=== PATIENT | female | born 1945 | race Caucasian/White ===

== ENCOUNTER → 2022-11-27 12:22 | Outpatient (CLI) | payer MEDICARE, BC, SELFPAY ==
--- NOTE | 2022-11-27 12:24 | DI.US.S_ITS ---
PROCEDURE: US PERIPH VENOUS LOW EXTREM LT INDICATIONS: LLE EDEMA TECHNIQUE: Real-time imaging, as well as color and pulse Doppler interrogation, were performed of the lower extremity deep veins from the inguinal ligament to the popliteal fossa, with documentation of the visualized calf veins. COMPARISON: None. FINDINGS: The common femoral, femoral, popliteal, and the visualized calf veins are normally compressible, and free of intraluminal thrombus. Color and pulse Doppler demonstrate normal phasic intraluminal flow. There is normal augmentation response to distal compression maneuver. IMPRESSION: No findings of lower extremity deep venous thrombosis. Dictated by: Josue Hudson M.D. on 11/27/2022 at 15:26 Approved by: Josue Hudson M.D. on 11/27/2022 at 15:26
== END ==
PROVIDERS: PCP Family Medicine; Referring Provider Physician Assistant Medical; Visit Provider Physician Assistant Medical
DX: R22.42 Localized swelling, mass and lump, left lower limb (principal); M79.606 Pain in leg, unspecified; M79.673 Pain in unspecified foot
CPT/HCPCS: 93971

== ENCOUNTER → 2022-12-11 08:13 | Outpatient (CLI) | payer MEDICARE, BC, SELFPAY ==
[2022-12-11 19:30] LABS: Add Manual Diff / Slide Review NO; Basophils Absolute Auto 0 /uL (0-100); Basophils Percent Auto 0.7 % (0-2); Eosinophils Absolute Auto 100 /uL (0-450); Eosinophils Percent Auto 1.3 % (2-4); Hematocrit 40.1 % (36-46); Hemoglobin 13.6 g/dL (12.0-16.0); Lymphocytes Absolute Auto 1200 /uL (1100-4500); Lymphocytes Percent Auto 22.5 % (25-40); Mean Corpuscular Hemoglobin 33.1 PG (26-34); Mean Corpuscular Volume 97.3 fL (80-100); Monocytes Absolute Auto 500 /uL (0-900); Monocytes Percent Auto 9.2 % (3-14); Neutrophils Absolute Auto 3400 /uL (1500-7000); Neutrophils Percent Auto 66.3 % (50-75); Platelet Count 193 X10^3/uL (150-400); Red Blood Cell Count 4.12 X10^6/uL (4.0-5.2); Red Cell Distribution Width 14.3 % (11.6-14.8); White Blood Cell Count 5.1 X10^3/uL (4.5-11.0)
[2022-12-11 19:40] LABS: BUN Creatinine Ratio 28.8 (6-22); Blood Urea Nitrogen 19 mg/dL (7-17); Calcium 9.3 mg/dL (8.4-10.2); Carbon Dioxide 31 mmol/L (22-32); Chloride 103 mmol/L (98-107); Cholesterol 214 mg/dL (140-199); Estimated Glomerular Filt Rate > 60 mL/min (>60); Glucose 95 mg/dL (80-110); HDL Cholesterol 88 mg/dL (40-60); HEMOLYSIS < 15 (0-50); LDL Cholesterol Calculated 110 mg/dL (<100); Potassium 3.9 mmol/L (3.4-5.1); Sodium 138 mmol/L (137-145); Triglycerides 81 mg/dL (35-150); Uric Acid 5.4 mg/dL (2.5-6.2)
== END ==
PROVIDERS: PCP Family Medicine; Visit Provider Family Medicine
DX: Z13.6 Encounter for screening for cardiovascular disorders (principal); R53.83 Other fatigue; Z13.1 Encounter for screening for diabetes mellitus; Z13.220 Encounter for screening for lipoid disorders; Z71.85 Encounter for immunization safety counseling; M79.673 Pain in unspecified foot; M79.606 Pain in leg, unspecified
CPT/HCPCS: 80048; 80061; 84550; 85025

== ENCOUNTER → 2022-12-28 09:16 | Outpatient (CLI) | payer MEDICARE, BC, SELFPAY ==
[2022-12-28 19:46] LABS: Vitamin D 25 Hydroxy (D3) 31.8 ng/mL (30.0-100.0)
[2022-12-28 19:58] LABS: Thyroid Stimulating Hormone 1.34 uIU/mL (0.47-4.68)
[2022-12-28 20:12] LABS: Vitamin B12 371 pg/mL (239-931)
[2023-01-02 13:18] LABS: Albumin 3.6 g/dL (2.9-4.4); Alpha 1 Globulin 0.2 g/dL (0.0-0.4); Alpha 2 Globulin 0.7 g/dL (0.4-1.0); Beta 1 Globulin 1.1 g/dL (0.7-1.3); Gamma Globulin 0.8 g/dL (0.4-1.8); Protein, Total 6.5 g/dL (6.0-8.5)
== END ==
PROVIDERS: PCP Family Medicine; Visit Provider Family Medicine
DX: R53.83 Other fatigue (principal); M81.0 Age-related osteoporosis without current pathological fracture; G62.9 Polyneuropathy, unspecified
CPT/HCPCS: 82306; 82607; 84155; 84165; 84443

== ENCOUNTER → 2023-01-10 13:14 | Outpatient (CLI) | payer MEDICARE, BC, SELFPAY ==
[2023-01-10 19:33] LABS: Aspartate Aminotransferase 28 IU/L (14-36)
== END ==
PROVIDERS: PCP Family Medicine; Visit Provider Family Medicine
DX: B35.1 Tinea unguium (principal)
CPT/HCPCS: 84450

== ENCOUNTER → 2023-03-07 09:19 | Outpatient (CLI) | payer MEDICARE, BC, SELFPAY ==
[2023-03-07 19:53] LABS: Cholesterol 211 mg/dL (140-199); HDL Cholesterol 89 mg/dL (40-60); LDL Cholesterol Calculated 107 mg/dL (<100); Triglycerides 73 mg/dL (35-150)
== END ==
PROVIDERS: PCP Family Medicine; Visit Provider Family Medicine
DX: E78.2 Mixed hyperlipidemia (principal); I65.29 Occlusion and stenosis of unspecified carotid artery
CPT/HCPCS: 80061

== ENCOUNTER → 2023-03-13 12:00 | Outpatient (CLI) | payer MEDICARE, BC, SELFPAY ==
[2023-03-13 20:10] LABS: Aspartate Aminotransferase 35 IU/L (14-36)
== END ==
PROVIDERS: PCP Family Medicine; Visit Provider Family Medicine
DX: Z51.81 Encounter for therapeutic drug level monitoring (principal)
CPT/HCPCS: 84450

== ENCOUNTER → 2023-04-16 14:04 | Outpatient (CLI) | payer MEDICARE, BC, SELFPAY ==
[2023-04-16 20:26] LABS: Add Manual Diff / Slide Review NO; Basophils Absolute Auto 0 /uL (0-100); Basophils Percent Auto 0.6 % (0-2); Eosinophils Absolute Auto 100 /uL (0-450); Hematocrit 42.7 % (36-46); Hemoglobin 14.4 g/dL (12.0-16.0); Lymphocytes Absolute Auto 1400 /uL (1100-4500); Lymphocytes Percent Auto 20.3 % (25-40); Mean Corpuscular HGB Conc 33.7 % (30-36); Mean Corpuscular Hemoglobin 32.4 PG (26-34); Monocytes Absolute Auto 500 /uL (0-900); Monocytes Percent Auto 7.2 % (3-14); Neutrophils Absolute Auto 4900 /uL (1500-7000); Neutrophils Percent Auto 70.9 % (50-75); Platelet Count 237 X10^3/uL (150-400); Red Blood Cell Count 4.45 X10^6/uL (4.0-5.2); Red Cell Distribution Width 13.9 % (11.6-14.8)
[2023-04-16 20:28] LABS: Alanine Aminotransferase 25 IU/L (<35); Albumin 4.1 g/dL (3.5-5.0); Albumin Globulin Ratio 1.4 (1.0-2.8); Alkaline Phosphatase 90 U/L (38-126); Bilirubin Total 0.8 mg/dL (0.2-1.3); Blood Urea Nitrogen 20 mg/dL (7-17); Calcium 9.6 mg/dL (8.4-10.2); Carbon Dioxide 30 mmol/L (22-32); Chloride 102 mmol/L (98-107); Estimated Glomerular Filt Rate > 60 mL/min (>60); Glucose 100 mg/dL (80-110); Sodium 141 mmol/L (137-145); Total Protein 7.1 g/dL (6.3-8.2)
[2023-04-16 20:29] LABS: Aspartate Aminotransferase 50 IU/L (14-36); HEMOLYSIS 61 (0-50); Potassium 4.2 mmol/L (3.4-5.1)
[2023-04-16 20:32] LABS: Hemoglobin A1C% w Est Avg Glu 5.8 % (4.0-6.0)
[2023-04-16 20:38] LABS: Erythrocyte Sedimentation Rate 18 MM/HR (0-20)
[2023-04-18 20:38] LABS: Free Kappa Lt Chains, Serum 21.6 mg/L (3.3-19.4); Free Lambda Lt Chains,Serum 14.4 mg/L (5.7-26.3)
[2023-04-22 15:35] LABS: ANA Screen, IFA Negative (.)
== END ==
PROVIDERS: PCP Family Medicine; Visit Provider Psychiatry & Neurology Neurology
DX: G60.9 Hereditary and idiopathic neuropathy, unspecified (principal)
CPT/HCPCS: 80053; 83036; 83883; 85025; 85651; 86038

== ENCOUNTER → 2023-07-19 12:23 | Outpatient (CLI) | payer MEDICARE, BC, SELFPAY ==
[2023-07-19 21:47] LABS: Add Manual Diff / Slide Review NO; Basophils Absolute Auto 0 /uL (0-100); Basophils Percent Auto 0.6 % (0-2); Eosinophils Absolute Auto 100 /uL (0-450); Eosinophils Percent Auto 1.2 % (2-4); Hematocrit 43.2 % (36-46); Hemoglobin 14.3 g/dL (12.0-16.0); Lymphocytes Absolute Auto 1500 /uL (1100-4500); Lymphocytes Percent Auto 20.1 % (25-40); Mean Corpuscular HGB Conc 33.2 % (30-36); Mean Corpuscular Hemoglobin 31.9 PG (26-34); Mean Corpuscular Volume 96.3 fL (80-100); Monocytes Absolute Auto 400 /uL (0-900); Monocytes Percent Auto 5.5 % (3-14); Neutrophils Absolute Auto 5600 /uL (1500-7000); Neutrophils Percent Auto 72.6 % (50-75); Platelet Count 208 X10^3/uL (150-400); Red Blood Cell Count 4.48 X10^6/uL (4.0-5.2); White Blood Cell Count 7.7 X10^3/uL (4.5-11.0)
[2023-07-19 22:39] LABS: C-Reactive Protein Quant < 0.5 mg/dL (<1.0)
[2023-07-19 23:28] LABS: Erythrocyte Sedimentation Rate 13 MM/HR (0-20)
== END ==
PROVIDERS: PCP Family Medicine; Visit Provider Family Medicine
DX: M79.10 Myalgia, unspecified site (principal); R53.83 Other fatigue; I65.29 Occlusion and stenosis of unspecified carotid artery; G62.9 Polyneuropathy, unspecified
CPT/HCPCS: 85025; 85651; 86038; 86140

== ENCOUNTER → 2023-08-29 10:49 | Outpatient (CLI) | payer MEDICARE, BC, SELFPAY ==
[2023-08-29 19:42] LABS: Alanine Aminotransferase 21 IU/L (<35); Albumin 4.4 g/dL (3.5-5.0); Albumin Globulin Ratio 1.6 (1.0-2.8); Alkaline Phosphatase 73 U/L (38-126); Aspartate Aminotransferase 30 IU/L (14-36); Bilirubin Total 0.7 mg/dL (0.2-1.3); Bilirubin Unconjugated 0.3 mg/dL (0.0-1.1); Globulin 2.8 g/dL (1.7-4.1); HEMOLYSIS < 15 (0-50); Total Protein 7.2 g/dL (6.3-8.2)
[2023-08-29 20:17] LABS: TSH w/ Reflex to FT4 0.73 uIU/mL (0.47-4.68)
[2023-08-29 20:19] LABS: Erythrocyte Sedimentation Rate 14 MM/HR (0-20)
[2023-08-29 20:37] LABS: Vitamin B12 > 1000 pg/mL (239-931)
== END ==
PROVIDERS: Family Provider Family Medicine; PCP Family Medicine; Visit Provider Family Medicine
DX: M79.10 Myalgia, unspecified site (principal); G62.9 Polyneuropathy, unspecified; R53.83 Other fatigue
CPT/HCPCS: 80076; 82607; 84443; 85651

== ENCOUNTER → 2023-10-09 10:34 | Outpatient (CLI) | payer MEDICARE, BC, SELFPAY ==
--- NOTE | 2023-10-09 | DI.RAD.S_ITS ---
PROCEDURE: XR DEXA AXIAL SKELETON INDICATIONS: menopause and Hx hip fracture COMPARISON: None. FINDINGS: Lumbar Spine: Bone mineral density is 0.825 g/cm2, T score -2.0 Right Hip: Bone mineral density 0.733 g/cm2, T score -1.7 Right Femoral Neck: Bone mineral density is g/cm2, T score -2.4 Left Forearm: Bone mineral density 0.405 g/cm2, T score -3.2 Fracture Risk Calculation (when applicable): 10-year fracture risk of a major osteoporotic fracture <25 % and of a hip fracture 7.6%. (T score greater or equal to -1.0 to: NORMAL) (T score from -1.1 to -2.4: OSTEOPENIA) (T score less than or equal to -2.5: OSTEOPOROSIS) IMPRESSION: There is osteopenia of the lumbar spine, right hip and right femoral neck. There is osteoporosis of the left forearm. Follow-up guidelines as follows: Osteoporosis: Consider a repeat DEXA and Vertebral Fracture Assessment (VFA) exam in 2 years or sooner if medically necessary, to reassess this patient's status. Osteopenia: Consider a repeat DEXA in 2-3 years to reassess this patient's status, or if there is a new clinical indication. Normal: Consider a repeat DEXA in 5 years or sooner, or if there is a new clinical indication. All treatment decisions require clinical judgment and consideration of individual patient factors, including patient preferences, comorbidities, previous drug use, risk factors not captured in the FRAX model (e.g., frailty, falls, vitamin D deficiency, increased bone turnover, interval significant decline in bone density ) and possible under- or over-estimation of fracture risk by FRAX. In addition, the NOF Guide recommends that FDA-approved medical therapies be considered in postmenopausal women and men age >= 50 years with a: * Hip or vertebral (clinical or morphometric) fracture * T-score of <=-2.5 at the spine or hip * Ten-year fracture probability by FRAX of >= 3% for hip fracture or >=20% for major osteoporotic fracture. People with diagnosed cases of osteoporosis or at high risk for fracture should have regular bone mineral density tests. For patients eligible for Medicare, routine testing is allowed once every 2 years. The testing frequency can be increased to one year for patients who have rapidly progressing disease, those who are receiving or discontinuing medical therapy to restore bone mass, or have additional risk factors. Dictated by: Aman Henriquez M.D. on 10/10/2023 at 7:22 Approved by: Aman Henriquez M.D. on 10/10/2023 at 7:25
--- NOTE | 2023-10-09 10:37 | DI.MRI.S_ITS ---
PROCEDURE: MR LUMBAR SPINE WO CON INDICATIONS: Neurogenic claudication TECHNIQUE: Noncontrast sagittal T1 spin echo and T2 fast echo, sagittal STIR, and T2 fast spin echo through the lumbar spine. In cases with scoliosis, additional coronal T2 fast spin echo may be performed. COMPARISON: None. FINDINGS: Image quality: Excellent. Alignment and Curvature: There is straightening of lumbar lordosis. There is grade 1 retrolisthesis of L2 on L3, L3 on L4, L4 on L5 and L5 on S1. Bone Marrow: Marrow is of normal overall signal. Scattered lipid rich osseous hemangiomas. No acute vertebral body compression fractures. Spinal Cord: Conus medullaris terminates at the L1-L2 level. Visualized cord demonstrates normal signal and size. Paraspinous Soft Tissues: Hepatic and renal cysts. Intervertebral discs: Multilevel disc desiccation and height loss. T12-L1: No spinal canal stenosis or foraminal stenosis. Bilateral facet arthropathy. L1-L2: Dorsal disc bulge minimally effaces the ventral thecal sac. No foraminal stenosis. Bilateral facet arthropathy and ligamentum flavum hypertrophy. L2-L3: Dorsal disc bulge and ligamentum flavum hypertrophy result in mild narrowing the spinal canal. No foraminal stenosis. There is bilateral facet arthropathy. L3-L4: Dorsal disc bulge and ligamentum flavum hypertrophy result in mild narrowing the spinal canal. Mild bilateral foraminal narrowing. Bilateral facet arthropathy. L4-L5: Dorsal disc bulge mildly narrows the spinal canal. There is an annular tear along the dorsal aspect of the intervertebral disc. Moderate bilateral foraminal stenosis. Bilateral facet arthropathy and ligamentum flavum hypertrophy. L5-S1: Dorsal disc bulge mildly effaces the ventral thecal sac. Mild to moderate foraminal stenosis. Bilateral facet arthropathy. IMPRESSION: 1. There is multilevel degenerative disc disease within the lumbar spine as described above. No spinal canal stenosis. 2. There is straightening of lumbar lordosis. This finding can be seen in patients with muscle spasms. 3. There is grade 1 retrolisthesis of L2 on L3, L3 on L4, L4 on L5 and L5 on S1. Dictated by: Aman Henriquez M.D. on 10/09/2023 at 15:59 Approved by: Aman Henriquez M.D. on 10/09/2023 at 16:14
== END ==
PROVIDERS: Family Provider Family Medicine; PCP Family Medicine; Referring Provider Family Medicine; Visit Provider Family Medicine
DX: M43.17 Spondylolisthesis, lumbosacral region (principal); M43.16 Spondylolisthesis, lumbar region; M51.36 Other intervertebral disc degeneration, lumbar region; M51.37 Other intervertebral disc degeneration, lumbosacral region; M47.816 Spondylosis without myelopathy or radiculopathy, lumbar region; M47.817 Spondylosis without myelopathy or radiculopathy, lumbosacral region; M54.50 Low back pain, unspecified; G62.9 Polyneuropathy, unspecified; I73.9 Peripheral vascular disease, unspecified; M81.0 Age-related osteoporosis without current pathological fracture; Z78.0 Asymptomatic menopausal state; Z87.81 Personal history of (healed) traumatic fracture
CPT/HCPCS: 72148; 77080; 77081

== ENCOUNTER → 2023-12-05 11:34 | Outpatient (CLI) | payer MEDICARE, BC, SELFPAY ==
[2023-12-10 14:09] LABS: Alpha-1-Globulin 0.2 g/dL (0.0-0.4); Alpha-2-Globulin 0.8 g/dL (0.4-1.0); Gamma Globulin 0.8 g/dL (0.4-1.8); Globulin Total 2.9 g/dL (2.2-3.9); Protein, Total 6.9 g/dL (6.0-8.5)
[2023-12-11 17:08] LABS: ANA Screen, IFA Negative (.)
== END ==
PROVIDERS: Family Provider Family Medicine; PCP Family Medicine; Visit Provider Psychiatry & Neurology Neurology
DX: G60.9 Hereditary and idiopathic neuropathy, unspecified (principal)
CPT/HCPCS: 84155; 84165; 86038

== ENCOUNTER → 2023-12-12 10:17 | Outpatient (CLI) | payer MEDICARE, BC, SELFPAY ==
--- NOTE | 2023-12-12 10:18 | DI.US.S_ITS ---
PROCEDURE: US CAROTID DOPPLER BI INDICATIONS: STENOSIS OF CAROTID ARTERY TECHNIQUE: Color and pulse Doppler interrogation was performed of both carotid systems, with image documentation and velocity measurements. COMPARISON: None. FINDINGS: Stenosis calculations are based on SRU (Society of Radiologists in Ultras[employer]) criteria. Right side: Brachial blood pressure: 137/75 mm Hg. Common carotid artery peak systolic velocity: 70 cm/sec. Internal carotid artery peak systolic velocity: 67 cm/sec. Internal carotid artery end diastolic velocity: 28 cm/sec. External carotid artery peak systolic velocity: 50 cm/sec. ICA/CCA peak systolic ratio: 1.0 . Bhakta scale imaging description: Mild plaque Percent internal carotid artery stenosis: Less than 50% . Vertebral artery: Flow direction is antegrade. Left side: Brachial blood pressure: 140/81 mm Hg. Common carotid artery peak systolic velocity: 55 cm/sec. Internal carotid artery peak systolic velocity: 57 cm/sec. Internal carotid artery end diastolic velocity: 21 cm/sec. External carotid artery peak systolic velocity: 50 cm/sec. ICA/CCA peak systolic ratio: 1.0 . Bhakta scale imaging description: Mild plaque Percent internal carotid artery stenosis: Less than 50% . Vertebral artery: Flow direction is antegrade. IMPRESSION: Less than 50% stenosis of the internal carotid arteries bilaterally. Dictated by: Luz Marina Pratt M.D. on 12/12/2023 at 17:21 Approved by: Luz Marina Pratt M.D. on 12/12/2023 at 17:21
== END ==
PROVIDERS: Family Provider Family Medicine; PCP Family Medicine; Referring Provider Internal Medicine Cardiovascular Disease; Visit Provider Internal Medicine Cardiovascular Disease
DX: I65.23 Occlusion and stenosis of bilateral carotid arteries (principal); E78.5 Hyperlipidemia, unspecified; R53.83 Other fatigue
CPT/HCPCS: 93880

== ENCOUNTER → 2024-01-28 10:10 | Outpatient (CLI) | payer MEDICARE, BC, SELFPAY ==
[2024-01-28 18:54] LABS: Cholesterol 249 mg/dL (140-199); HDL Cholesterol 96 mg/dL (40-60); LDL Cholesterol Calculated 136 mg/dL (<100); Triglycerides 83 mg/dL (35-150)
== END ==
PROVIDERS: Family Provider Family Medicine; PCP Family Medicine; Visit Provider Family Medicine
DX: E78.2 Mixed hyperlipidemia (principal)
CPT/HCPCS: 80061

== ENCOUNTER → 2024-04-16 11:21 | Outpatient (CLI) | payer MEDICARE, BC, SELFPAY ==
--- NOTE | 2024-04-16 11:22 | DI.MRI.S_ITS ---
PROCEDURE: MR CERVICAL SPINE WO CON INDICATIONS: upper extremity neuropathy TECHNIQUE: Noncontrast sagittal T1 spin echo and T2 fast spin echo, sagittal STIR, foraminal oblique sagittal T2 fast spin echo, and axial gradient echo or T2 fast spin echo through the cervical spine. COMPARISON: None. FINDINGS: Image quality: Excellent. Alignment and Curvature: Minimal retrolisthesis can be seen at the C4-C5 level. There is minimal anterolisthesis seen at C7-T1. Bone Marrow: Marrow demonstrates normal overall signal. Spinal Cord: Visualized spinal cord has normal size and signal. No cerebellar tonsillar herniation. Paraspinous Soft Tissues: No paravertebral masses. Prevertebral soft tissues are normal in thickness. C2-C3: The disc height is well-preserved. Loss of disc signal is seen at this level. A mild degree of generalized disc osteophyte complex is seen. [id number] left-sided facet hypertrophy is seen. There is mild left-sided and no right-sided neural foraminal narrowing. No central canal narrowing is seen. C3-C4: The disc height is well-preserved. Loss of disc signal is seen at this level. A mild degree of generalized disc osteophyte complex is seen. Moderate facet joint hypertrophy is seen. There is mild right-sided and no left-sided neural foraminal narrowing. Minimal central canal narrowing is seen. C4-C5: Moderate loss of disc height is seen. Loss of disc signal is seen. Mild to moderate disc osteophyte complex is seen, with a central disc osteophyte protrusion. There is mild right-sided and moderate left-sided facet hypertrophy. There is moderate right-sided and at least moderate left-sided neural foraminal narrowing. Mild to moderate central canal narrowing is seen, with mild mass effect upon the ventral spinal cord. C5-C6: Mild loss of disc height is seen. Loss of disc signal is seen. Mild to moderate facet hypertrophy can be seen. Moderate bilateral neural foraminal narrowing can be seen, left worse than right. Mild central canal narrowing is seen. C6-C7: [id number] loss of disc height and disc signal can be seen. Moderate disc osteophyte complex is seen, which is slightly eccentric to the right. There is a central disc osteophyte protrusion. Moderate facet joint hypertrophy is seen. There is moderate to severe right-sided and at least moderate left-sided neural foraminal narrowing. Moderate central canal narrowing is seen. There is associated mass effect upon the ventral spinal cord. C7-T1: Mild loss of disc height is seen. Loss of disc signal is seen. A mild degree of generalized disc osteophyte complex is seen. Mild facet joint hypertrophy is seen. No significant neural foraminal or central canal narrowing can be seen. IMPRESSION: Multiple levels of cervical spine degenerative change can be seen, which are overall worst at the C4-C5 and C6-C7 levels. Dictated by: Josue Hudson M.D. on 04/17/2024 at 10:28 Approved by: Josue Hudson M.D. on 04/17/2024 at 10:34
== END ==
PROVIDERS: Family Provider Family Medicine; PCP Family Medicine; Referring Provider Family Medicine; Visit Provider Family Medicine
DX: M47.812 Spondylosis without myelopathy or radiculopathy, cervical region (principal); G62.9 Polyneuropathy, unspecified
CPT/HCPCS: 72141

== ENCOUNTER → 2024-05-23 09:09 | Outpatient (CLI) | payer MEDICARE, BC, SELFPAY ==
[2024-05-23 19:45] LABS: Cholesterol 200 mg/dL (140-199); HDL Cholesterol 77 mg/dL (40-60); LDL Cholesterol Calculated 102 mg/dL (<100); Triglycerides 104 mg/dL (35-150)
== END ==
PROVIDERS: Family Provider Family Medicine; PCP Family Medicine; Visit Provider Family Medicine
DX: E78.2 Mixed hyperlipidemia (principal)
CPT/HCPCS: 80061

== ENCOUNTER → 2024-08-20 09:42 | Outpatient (CLI) | payer MEDICARE, BC, SELFPAY ==
[2024-08-20 19:57] LABS: Add Manual Diff / Slide Review NO; Basophils Absolute Auto 0 /uL (0-100); Basophils Percent Auto 0.8 % (0-2); Eosinophils Absolute Auto 100 /uL (0-450); Hematocrit 42.4 % (36-46); Hemoglobin 14.4 g/dL (12.0-16.0); Lymphocytes Absolute Auto 1300 /uL (1100-4500); Lymphocytes Percent Auto 24.2 % (25-40); Mean Corpuscular Hemoglobin 32.1 PG (26-34); Mean Corpuscular Volume 94.3 fL (80-100); Monocytes Absolute Auto 500 /uL (0-900); Monocytes Percent Auto 9.2 % (3-14); Neutrophils Absolute Auto 3300 /uL (1500-7000); Neutrophils Percent Auto 63.8 % (50-75); Platelet Count 192 X10^3/uL (150-400); Red Blood Cell Count 4.49 X10^6/uL (4.0-5.2); Red Cell Distribution Width 14.5 % (11.6-14.8); White Blood Cell Count 5.2 X10^3/uL (4.5-11.0)
[2024-08-20 20:10] LABS: Blood Urea Nitrogen 19 mg/dL (7-17); Calcium 9.5 mg/dL (8.4-10.2); Carbon Dioxide 32 mmol/L (22-32); Chloride 101 mmol/L (98-107); Cholesterol 189 mg/dL (140-199); Estimated Glomerular Filt Rate > 60 mL/min (>60); Glucose 100 mg/dL (70-99); HEMOLYSIS < 15 (0-50); Potassium 4.3 mmol/L (3.4-5.1); Sodium 141 mmol/L (137-145); Triglycerides 57 mg/dL (35-150)
[2024-08-20 20:18] LABS: HDL Cholesterol 113 mg/dL (40-60); LDL Cholesterol Calculated 65 mg/dL (<100)
== END ==
PROVIDERS: Family Provider Family Medicine; PCP Family Medicine; Visit Provider Family Medicine
DX: I65.23 Occlusion and stenosis of bilateral carotid arteries (principal); E78.2 Mixed hyperlipidemia; R26.89 Other abnormalities of gait and mobility; G62.9 Polyneuropathy, unspecified; Z78.9 Other specified health status
CPT/HCPCS: 80048; 80061; 85025